=== PATIENT | female | born 1975 | race Caucasian/White ===

== ENCOUNTER 2019-06-13 10:08 | Outpatient (CLI) | payer OTHER, SELFPAY ==
[2019-06-13 10:47] LABS: Alanine Aminotransferase 14 U/L (4-35); Albumin Level 4.4 g/dL (3.5-5.1); Alkaline Phosphatase 115 U/L (38-126); Aspartate Amino Transferase 19 U/L (14-36); Bilirubin,Total 0.5 mg/dL (0.2-1.3); Blood Urea Nitrogen 13 mg/dL (7-17); Calcium 8.9 mg/dL (8.4-10.2); Carbon Dioxide 26 mmol/L (22-30); Chloride 101 mmol/L (98-107); Cholesterol 222 mg/dL (0-200); Estimated Glomerular Filt Rate > 60; Glucose 96 mg/dL (65-105); HDL Direct 43 mg/dL; Potassium 4.2 mmol/L (3.4-5.0); Sodium 139 mmol/L (137-145); Triglycerides 137 mg/dL (<150)
[2019-06-13 10:58] LABS: LDL Cholesterol Direct 132 mg/dL
== END 2019-06-13 10:09 | disposition home or self-care (01) ==
PROVIDERS: PCP Emergency Medicine; Visit Provider Emergency Medicine
DX: E78.5 Hyperlipidemia, unspecified (principal)
CPT/HCPCS: 36415; 80053; 80061

== ENCOUNTER 2019-12-30 07:29 | Outpatient (CLI) | payer OTHER, SELFPAY ==
[2019-12-30 08:41] LABS: Alanine Aminotransferase 12 U/L (4-35); Alkaline Phosphatase 82 U/L (38-126); Anion Gap 7 mmol/L (8-16); Aspartate Amino Transferase 19 U/L (14-36); Bilirubin,Total 0.3 mg/dL (0.2-1.3); Blood Urea Nitrogen 15 mg/dL (7-17); Carbon Dioxide 27 mmol/L (22-30); Chloride 104 mmol/L (98-107); Cholesterol 226 mg/dL (0-200); Estimated Glomerular Filt Rate > 60; Glucose 93 mg/dL (65-105); HDL Direct 38 mg/dL; Potassium 4.3 mmol/L (3.4-5.0); Sodium 138 mmol/L (137-145); Triglycerides 174 mg/dL (<150)
[2019-12-30 08:52] LABS: LDL Cholesterol Direct 131 mg/dL
== END 2019-12-30 07:30 | disposition home or self-care (01) ==
PROVIDERS: PCP Emergency Medicine; Visit Provider Emergency Medicine
DX: E78.5 Hyperlipidemia, unspecified (principal)
CPT/HCPCS: 36415; 80053; 80061

== ENCOUNTER 2020-03-16 13:49 | Outpatient (CLI) | payer OTHER, SELFPAY ==
--- NOTE | ~2020-03-16 | MM_ITS ---
EXAMINATION: MM screening lorena BI w deepti HISTORY: Screening TECHNIQUE: Craniocaudal and mediolateral oblique 3-D tomosynthesis images were obtained and synthetic 2-D images were generated. CAD analysis was submitted and interpreted. COMPARISON: Comparison to multiple prior studies sequentially, with oldest reviewed study dated 01/20. BREAST PARENCHYMAL COMPOSITION: There are scattered areas of fibroglandular density. FINDINGS: There is no evidence of suspicious mass, calcification, or architectural distortion to sugg est malignancy in either breast. There has been no suspicious interval change. IMPRESSION: 1. No mammographic evidence of malignancy. 2. Recommend routine screening mammography in one year. BI-RADS Category 1: Negative Reviewed, dictated and finalized at location A. S ARCHITECT
== END 2020-03-16 13:50 | disposition home or self-care (01) ==
LOC: ANHIMG 13:52
PROVIDERS: PCP Emergency Medicine; Visit Provider Obstetrics & Gynecology
DX: Z12.31 Encounter for screening mammogram for malignant neoplasm of breast (principal)
CPT/HCPCS: 77063; 77067

== ENCOUNTER 2020-04-02 10:44 | Outpatient (CLI) | payer OTHER, SELFPAY ==
[2020-04-02 11:36] LABS: LDL Cholesterol Direct 137 mg/dL
[2020-04-02 11:52] LABS: Alanine Aminotransferase 12 U/L (4-35); Albumin Level 4.2 g/dL (3.5-5.1); Alkaline Phosphatase 101 U/L (38-126); Anion Gap 10 mmol/L (8-16); Aspartate Amino Transferase 21 U/L (14-36); Bilirubin,Total 0.4 mg/dL (0.2-1.3); Blood Urea Nitrogen 14 mg/dL (7-17); Calcium 9.1 mg/dL (8.4-10.2); Carbon Dioxide 27 mmol/L (22-30); Chloride 104 mmol/L (98-107); Cholesterol 218 mg/dL (0-200); Estimated Glomerular Filt Rate 60; Glucose 106 mg/dL (65-105); HDL Direct 40 mg/dL; Potassium 4.4 mmol/L (3.4-5.0); Sodium 141 mmol/L (137-145); Triglycerides 115 mg/dL (<150)
== END 2020-04-02 10:45 | disposition home or self-care (01) ==
PROVIDERS: PCP Emergency Medicine; Visit Provider Emergency Medicine
DX: E78.5 Hyperlipidemia, unspecified (principal)
CPT/HCPCS: 36415; 80053; 80061

== ENCOUNTER 2020-07-23 09:27 | Outpatient (CLI) | payer OTHER, SELFPAY ==
[2020-07-23 09:51] LABS: Alanine Aminotransferase 12 U/L (4-35); Albumin Level 4.2 g/dL (3.5-5.1); Alkaline Phosphatase 96 U/L (38-126); Anion Gap 5 mmol/L (8-16); Aspartate Amino Transferase 19 U/L (14-36); Bilirubin,Total 0.2 mg/dL (0.2-1.3); Blood Urea Nitrogen 14 mg/dL (7-17); Calcium 8.7 mg/dL (8.4-10.2); Carbon Dioxide 27 mmol/L (22-30); Chloride 107 mmol/L (98-107); Cholesterol 209 mg/dL (0-200); Estimated Glomerular Filt Rate > 60; Glucose 100 mg/dL (65-105); HDL Direct 43 mg/dL; Potassium 4.3 mmol/L (3.4-5.0); Sodium 139 mmol/L (137-145); Triglycerides 104 mg/dL (<150)
[2020-07-23 10:01] LABS: LDL Cholesterol Direct 125 mg/dL
== END 2020-07-23 09:28 | disposition home or self-care (01) ==
LOC: ANHLAB 09:29
PROVIDERS: PCP Emergency Medicine; Visit Provider Emergency Medicine
DX: E78.5 Hyperlipidemia, unspecified (principal)
CPT/HCPCS: 36415; 80053; 80061

== ENCOUNTER 2021-04-18 06:57 | Outpatient (CLI) | payer OTHER, SELFPAY ==
[2021-04-18 07:30] LABS: Alanine Aminotransferase 14 U/L (4-35); Alkaline Phosphatase 86 U/L (38-126); Anion Gap 9 mmol/L (8-16); Aspartate Amino Transferase 18 U/L (14-36); Bilirubin,Total 0.3 mg/dL (0.2-1.3); Blood Urea Nitrogen 14 mg/dL (7-17); Calcium 8.7 mg/dL (8.4-10.2); Carbon Dioxide 24 mmol/L (22-30); Chloride 107 mmol/L (98-107); Cholesterol 238 mg/dL (0-200); Estimated Glomerular Filt Rate 60; Glucose 107 mg/dL (65-110); HDL Direct 43 mg/dL; Potassium 4.2 mmol/L (3.4-5.0); Sodium 140 mmol/L (137-145); Triglycerides 195 mg/dL (<150)
[2021-04-18 07:41] LABS: LDL Cholesterol Direct 131 mg/dL
[2021-04-22 00:03] LABS: Vitamin D 1,25 (OH)2 Total 41 pg/mL (18-72); Vitamin D2 1,25 (OH)2 <8 pg/mL; Vitamin D3 1,25 (OH)2 41 pg/mL
== END 2021-04-18 06:58 | disposition home or self-care (01) ==
PROVIDERS: PCP Emergency Medicine; Visit Provider Emergency Medicine
DX: R53.83 Other fatigue (principal); E78.5 Hyperlipidemia, unspecified
CPT/HCPCS: 36415; 80053; 80061; 82652

== ENCOUNTER 2021-07-22 07:13 | Outpatient (CLI) | payer OTHER, SELFPAY ==
[2021-07-22 08:09] LABS: Alanine Aminotransferase 12 U/L (4-35); Albumin Level 4.3 g/dL (3.5-5.1); Alkaline Phosphatase 97 U/L (38-126); Anion Gap 6 mmol/L (8-16); Aspartate Amino Transferase 23 U/L (14-36); Bilirubin,Total 0.3 mg/dL (0.2-1.3); Blood Urea Nitrogen 13 mg/dL (7-17); Calcium 8.6 mg/dL (8.4-10.2); Carbon Dioxide 28 mmol/L (22-30); Chloride 104 mmol/L (98-107); Cholesterol 227 mg/dL (0-200); Estimated Glomerular Filt Rate > 60; Glucose 109 mg/dL (65-110); HDL Direct 42 mg/dL; Potassium 4.3 mmol/L (3.4-5.0); Sodium 138 mmol/L (137-145); Triglycerides 118 mg/dL (<150)
[2021-07-22 08:20] LABS: LDL Cholesterol Direct 120 mg/dL
== END 2021-07-22 07:14 | disposition home or self-care (01) ==
LOC: ANHLAB 07:14
PROVIDERS: PCP Emergency Medicine; Visit Provider Emergency Medicine
DX: I10 Essential (primary) hypertension (principal); E78.5 Hyperlipidemia, unspecified
CPT/HCPCS: 36415; 80053; 80061

== ENCOUNTER → 2021-08-18 15:01 | Outpatient (CLI) | payer OTHER, SELFPAY ==
--- NOTE | ~2021-08-18 | MM_ITS ---
EXAMINATION: MM screening lorena BI w deepti HISTORY: Screening mammogram TECHNIQUE: Craniocaudal and mediolateral oblique 3-D tomosynthesis images were obtained and synthetic 2-D images were generated. CAD analysis was submitted and interpreted. COMPARISON: 02/20/2019, 03/16/2020 bilateral screening mammogram examinations BREAST PARENCHYMAL COMPOSITION: There are scattered areas of fibroglandular density. FINDINGS: There is no evidence of suspicious mass, calcification, or architectural distortion to sugg est malignancy in either breast. There has been no suspicious interval change. IMPRESSION: 1. No mammographic evidence of malignancy. 2. Recommend routine screening mammography in one year. BI-RADS Category 1: Negative Reviewed, dictated and finalized at location A.
== END ==
PROVIDERS: PCP Emergency Medicine; Visit Provider Obstetrics & Gynecology
DX: Z12.31 Encounter for screening mammogram for malignant neoplasm of breast (principal)
CPT/HCPCS: 77063; 77067

== ENCOUNTER 2021-12-23 10:39 | Outpatient (CLI) | payer OTHER, SELFPAY ==
[2021-12-23 11:06] LABS: Alanine Aminotransferase 12 U/L (6-35); Albumin Level 4.3 g/dL (3.5-5.1); Alkaline Phosphatase 96 U/L (38-126); Anion Gap 13 mmol/L (8-16); Aspartate Amino Transferase 23 U/L (14-36); Bilirubin,Total 0.3 mg/dL (0.2-1.3); Blood Urea Nitrogen 14 mg/dL (7-17); Calcium 8.7 mg/dL (8.4-10.2); Carbon Dioxide 28 mmol/L (22-30); Chloride 100 mmol/L (98-107); Cholesterol 230 mg/dL (0-200); Estimated Glomerular Filt Rate 59; Glucose 98 mg/dL (65-110); HDL Direct 39 mg/dL; Potassium 4.3 mmol/L (3.4-5.0); Sodium 141 mmol/L (137-145); Triglycerides 152 mg/dL (<150)
[2021-12-23 11:17] LABS: LDL Cholesterol Direct 122 mg/dL
== END 2021-12-23 10:40 | disposition home or self-care (01) ==
LOC: ANHLAB 10:41
PROVIDERS: PCP Emergency Medicine; Visit Provider Emergency Medicine
DX: E78.5 Hyperlipidemia, unspecified (principal); I10 Essential (primary) hypertension
CPT/HCPCS: 36415; 80053; 80061

== ENCOUNTER 2022-05-19 06:57 | Outpatient (CLI) | payer OTHER, SELFPAY ==
[2022-05-19 08:56] LABS: Alanine Aminotransferase 13 U/L (6-35); Albumin Level 4.3 g/dL (3.5-5.1); Alkaline Phosphatase 94 U/L (38-126); Anion Gap 4 mmol/L (8-16); Aspartate Amino Transferase 18 U/L (14-36); Bilirubin,Total 0.4 mg/dL (0.2-1.3); Blood Urea Nitrogen 12 mg/dL (7-17); Calcium 8.5 mg/dL (8.4-10.2); Carbon Dioxide 30 mmol/L (22-30); Chloride 104 mmol/L (98-107); Cholesterol 233 mg/dL (0-200); Estimated Glomerular Filt Rate > 60; Glucose 97 mg/dL (65-110); HDL Direct 43 mg/dL; Potassium 4.2 mmol/L (3.4-5.0); Sodium 138 mmol/L (137-145); Triglycerides 131 mg/dL (<150)
[2022-05-19 09:07] LABS: LDL Cholesterol Direct 120 mg/dL
[2022-05-23 11:34] LABS: Vitamin D 1,25 (OH)2 Total 44 pg/mL (18-72); Vitamin D2 1,25 (OH)2 <8 pg/mL; Vitamin D3 1,25 (OH)2 44 pg/mL
== END 2022-05-19 06:58 | disposition home or self-care (01) ==
LOC: ANHLAB 06:59
PROVIDERS: PCP Emergency Medicine; Visit Provider Emergency Medicine
DX: R53.83 Other fatigue (principal); I10 Essential (primary) hypertension
CPT/HCPCS: 36415; 80053; 80061; 82652

== ENCOUNTER 2022-06-21 12:37 | Outpatient (RCR) | payer OTHER, SELFPAY ==
[2022-06-21 14:27] VITALS: BMI 34.2
[2022-06-21 14:28] VITALS: BMI 34.2
== END 2022-09-11 10:23 | disposition home or self-care (01) ==
LOC: ANHDMC 12:37
PROVIDERS: PCP Emergency Medicine; Visit Provider Emergency Medicine
DX: E66.9 Obesity, unspecified (principal); Z71.3 Dietary counseling and surveillance
CPT/HCPCS: 97802

== ENCOUNTER 2023-01-05 07:13 | Outpatient (CLI) | payer OTHER, SELFPAY ==
[2023-01-05 07:59] LABS: Alanine Aminotransferase 13 U/L (6-35); Albumin Level 4.3 g/dL (3.5-5.1); Alkaline Phosphatase 80 U/L (38-126); Anion Gap 9 mmol/L (8-16); Aspartate Amino Transferase 20 U/L (14-36); Bilirubin,Total 0.4 mg/dL (0.2-1.3); Blood Urea Nitrogen 16 mg/dL (7-17); Calcium 9.1 mg/dL (8.4-10.2); Carbon Dioxide 25 mmol/L (22-30); Chloride 105 mmol/L (98-107); Cholesterol 231 mg/dL (0-200); Estimated Glomerular Filt Rate > 60; Glucose 102 mg/dL (65-110); HDL Direct 42 mg/dL; Potassium 4.1 mmol/L (3.4-5.0); Sodium 139 mmol/L (137-145); Triglycerides 128 mg/dL (<150)
[2023-01-05 08:10] LABS: LDL Cholesterol Direct 131 mg/dL
[2023-01-10 11:03] LABS: Vitamin D 1,25 (OH)2 Total 54 pg/mL (18-72); Vitamin D2 1,25 (OH)2 <8 pg/mL; Vitamin D3 1,25 (OH)2 54 pg/mL
== END 2023-01-05 07:14 | disposition home or self-care (01) ==
PROVIDERS: PCP Emergency Medicine; Visit Provider Emergency Medicine
DX: E78.5 Hyperlipidemia, unspecified (principal); E55.9 Vitamin D deficiency, unspecified
CPT/HCPCS: 36415; 80053; 80061; 82652

== ENCOUNTER 2023-01-08 15:55 | Outpatient (CLI) | payer OTHER, SELFPAY ==
--- NOTE | ~2023-01-08 | MM_ITS ---
EXAMINATION: MM screening lorena BI w deepti HISTORY: Screening TECHNIQUE: Craniocaudal and mediolateral oblique 3-D tomosynthesis images were obtained and synthetic 2-D images were generated. CAD analysis was submitted and interpreted. COMPARISON: Comparison to multiple prior studies sequentially, with oldest reviewed study dated 01/21. BREAST PARENCHYMAL COMPOSITION: Breast composed of scattered areas of fibroglandular density FINDINGS: There is no evidence of suspicious mass, calcification, or architectural distortion to sugg est malignancy in either breast. There has been no suspicious interval change. IMPRESSION: 1. No mammographic evidence of malignancy. 2. Recommend routine screening mammography in one year. BI-RADS Category 1: Negative Reviewed, dictated and finalized at location A.
== END 2023-01-08 15:56 ==
PROVIDERS: PCP Emergency Medicine; Visit Provider Obstetrics & Gynecology
DX: Z12.31 Encounter for screening mammogram for malignant neoplasm of breast (principal)
CPT/HCPCS: 77063; 77067

== ENCOUNTER 2023-05-18 07:09 | Outpatient (CLI) | payer OTHER, SELFPAY ==
[2023-05-18 07:58] LABS: Alanine Aminotransferase 15 U/L (6-35); Albumin Level 4.3 g/dL (3.5-5.1); Alkaline Phosphatase 80 U/L (38-126); Anion Gap 7 mmol/L (8-16); Aspartate Amino Transferase 16 U/L (14-36); Bilirubin,Total 0.3 mg/dL (0.2-1.3); Blood Urea Nitrogen 17 mg/dL (7-17); Carbon Dioxide 25 mmol/L (22-30); Chloride 108 mmol/L (98-107); Cholesterol 218 mg/dL (0-200); Estimated Glomerular Filt Rate > 60; Glucose 102 mg/dL (65-110); HDL Direct 43 mg/dL; Potassium 4.1 mmol/L (3.4-5.0); Sodium 140 mmol/L (137-145); Triglycerides 139 mg/dL (<150)
[2023-05-18 08:10] LABS: LDL Cholesterol Direct 127 mg/dL
== END 2023-05-18 07:10 | disposition home or self-care (01) ==
LOC: ANHLAB 07:12
PROVIDERS: PCP Emergency Medicine; Visit Provider Emergency Medicine
DX: E78.5 Hyperlipidemia, unspecified (principal); E55.9 Vitamin D deficiency, unspecified
CPT/HCPCS: 36415; 80053; 80061; 82306

== ENCOUNTER 2023-06-10 14:16 | Outpatient (CLI) | payer OTHER, SELFPAY ==
--- NOTE | 2023-06-10 14:50 | ECHO_ITS ---
Patient Info Name: Tere Tracy Age: 48 years : 1975 Gender: Female Ht: 64 in Wt: 190 lbs BSA: 2.01 m2 HR: 69 bpm BP: 132 / 70 mmHg Technical Quality: Good Exam Date: 06/10/2023 2:55 PM Exam Location: [facility] Lab Patient Status: Outpatient Admit Date: 06/10/2023 Staff Ordering Physician: Del Beaulieu MD Portable Grinding Machine Operator: Neyda Soto RDCS Attending Provider: Del Beaulieu MD Referring Physician: Christofer PERALES; Exam Type: CA echo doppler color flow Study Info Indications I34.1 - Nonrheumatic mitral (valve) prolapse Complete two-dimensional, color flow and Doppler transthoracic echocardiogram is performed. Summary 1. Complete two-dimensional, color flow and Doppler transthoracic echocardiogram is performed. 2. Left ventricular chamber dimension is normal. 3. Left ventricular systolic function is normal, estimated at 60-65%. 4. The left ventricular diastolic function is normal. 5. E/e' 8 is minimally elevated. 6. Left atrial chamber dimension is mildly enlarged. 7. There is trace mitral valve regurgitation. 8. There is trace tricuspid valve regurgitation. 9. No pulmonary hypertension, estimated pulmonary arterial systolic pressure is 30 mmHg. Left Ventricle E/e' 8 is minimally elevated. Left ventricular chamber dimension is normal. Left ventricular systolic function is normal, estimated at 60-65%. The left ventricular diastolic function is normal. Right Ventricle Right ventricular chamber dimension is normal. Right ventricular systolic function is normal. Left Atria Left atrial chamber dimension is mildly enlarged. Right Atria Right atrial chamber dimension is normal. Aortic Valve The aortic valve is trileaflet. There is no aortic valve stenosis. There is no aortic valve regurgitation. Pulmonic Valve There is no pulmonic regurgitation. Mitral Valve No mitral valve prolapse. There is no mitral valve stenosis. There is trace mitral valve regurgitation. Tricuspid Valve There is trace tricuspid valve regurgitation. No pulmonary hypertension, estimated pulmonary arterial systolic pressure is 30 mmHg. Pericardium/Pleural There is no pericardial effusion. Inferior Vena Cava Normal inferior vena cava with >50% collapse upon inspiration consistent with normal right atrial pressure, 5 mmHg. Aorta The aortic root size at the sinus of Valsalva is normal. Left Ventricular Outflow Tract Name Value Normal LVOT 2D LVOT Diameter 1.9 cm LVOT Doppler LVOT Peak Gradient 6 mmHg LVOT Mean Gradient 3 mmHg LVOT VTI 26 cm LVOT VTI/AV VTI Ratio 0.7 LVOT Stroke Volume 74 ml LVOT CO 5.0 l/min LVOT CI 2.5 l/min/m2 Pulmonic Valve Name Value Normal RVOT Doppler RVOT Peak Gradient 3 mmHg PV
== END 2023-06-10 14:17 | disposition home or self-care (01) ==
LOC: ANHCARD 14:17
PROVIDERS: PCP Emergency Medicine; Visit Provider Emergency Medicine
DX: I34.1 Nonrheumatic mitral (valve) prolapse (principal)
CPT/HCPCS: 93306

== ENCOUNTER 2023-09-14 08:23 | Outpatient (CLI) | payer OTHER, SELFPAY ==
[2023-09-14 09:44] LABS: Alanine Aminotransferase 11 U/L (6-35); Albumin Level 4.6 g/dL (3.5-5.1); Alkaline Phosphatase 82 U/L (38-126); Anion Gap 10 mmol/L (4-12); Aspartate Amino Transferase 16 U/L (14-36); Bilirubin,Total 0.4 mg/dL (0.2-1.3); Blood Urea Nitrogen 15 mg/dL (7-17); Carbon Dioxide 25 mmol/L (22-30); Chloride 105 mmol/L (98-107); Estimated Glomerular Filt Rate > 60; Glucose 96 mg/dL (65-110); Potassium 4.4 mmol/L (3.4-5.0); Sodium 140 mmol/L (137-145)
[2023-09-14 10:02] LABS: Vitamin D 25 Hydroxy 27.1 ng/mL
== END 2023-09-14 08:24 | disposition home or self-care (01) ==
LOC: ANHLAB 08:29
PROVIDERS: PCP Emergency Medicine; Visit Provider Emergency Medicine
DX: E55.9 Vitamin D deficiency, unspecified (principal); E78.5 Hyperlipidemia, unspecified
CPT/HCPCS: 36415; 80053; 82306

== ENCOUNTER 2024-01-11 08:45 | Outpatient (CLI) | payer OTHER, SELFPAY ==
[2024-01-11 10:35] LABS: Vitamin D 25 Hydroxy 32.5 ng/mL
== END 2024-01-11 08:46 | disposition home or self-care (01) ==
LOC: ANHLAB 08:48
PROVIDERS: PCP Emergency Medicine; Visit Provider Emergency Medicine
DX: E55.9 Vitamin D deficiency, unspecified (principal)
CPT/HCPCS: 36415; 82306

== ENCOUNTER 2024-01-11 11:06 | Outpatient (CLI) | payer OTHER, SELFPAY ==
--- NOTE | ~2024-01-11 | MM_ITS ---
EXAMINATION: MM screening lorena BI w deepti HISTORY: Screening TECHNIQUE: Craniocaudal and mediolateral oblique 3-D tomosynthesis images were obtained and synthetic 2-D images were generated. CAD analysis was submitted and interpreted. COMPARISON: Comparison to multiple prior studies sequentially, with oldest reviewed study dated 01/21. BREAST PARENCHYMAL COMPOSITION: Not dense: There are scattered areas of fibroglandular density. FINDINGS: There are asymmetries in the upper aspect of the left breast which are slightly more promin ent than on prior examinations. The right breast is stable without evidence for malignancy. IMPRESSION: 1. Developing left breast asymmetries in the outer aspect of the left breast. 2. Additional mammographic views and possible breast ultrasound are recommended. BI-RADS Category 0: Incomplete: Needs additional imaging evaluation. Reviewed, dictated and finalized at location B. IMPRESSION: 1. Developing left breast asymmetries in the outer aspect of the left breast. 2. Additional mammographic views and possible breast ultrasound are recommended . BI-RADS Category 0: Incomplete: Needs additional imaging evaluation.
== END 2024-01-11 11:07 | disposition home or self-care (01) ==
PROVIDERS: PCP Emergency Medicine; Visit Provider Obstetrics & Gynecology
DX: N64.89 Other specified disorders of breast (principal); Z12.31 Encounter for screening mammogram for malignant neoplasm of breast
CPT/HCPCS: 77063; 77067

== ENCOUNTER 2024-01-28 07:36 | Outpatient (CLI) | payer OTHER, SELFPAY ==
--- NOTE | ~2024-01-28 | MMUS_ITS ---
EXAMINATION: MM diagnostic lorena LT w deepti, US breast LT limited HISTORY: Follow-up left breast asymmetries TECHNIQUE: Additional 3-D tomosynthesis images of the left breast were performed and synthetic 2-D im ages were generated. CAD analysis was submitted and interpreted. High resolution Limited left breast ultrasound was performed. COMPARISON: Comparison to multiple prior studies sequentially, with oldest reviewed study dated 01/20. BREAST PARENCHYMAL COMPOSITION: Not dense: There are scattered areas of fibroglandular density. FINDINGS: MAMMOGRAPHIC FINDINGS: There are no suspicious masses, calcifications or architectural distortion in the left breast to sugg est malignancy. Left breast asymmetries compress with spot views, compatible with superimposed fibrog landular content. ULTRASOUND: Limited left breast ultrasound: Normal heterogeneous echotexture without focal solid or cystic mass. IMPRESSION: 1. No evidence for malignancy in the left breast. 2. Routine yearly screening mammogram and regular clinical breast examination are recommended. BI-RADS Category 1: Negative Reviewed, dictated and finalized at location B. IMPRESSION: 1. No evidence for malignancy in the left breast. 2. Routine yearly screening mammogram and regular clinical breast examination a re recommended. BI-RADS Category 1: Negative
== END 2024-01-28 07:37 | disposition home or self-care (01) ==
LOC: MICIMG 07:37
PROVIDERS: PCP Emergency Medicine; Visit Provider Obstetrics & Gynecology
DX: R92.8 Other abnormal and inconclusive findings on diagnostic imaging of breast (principal)
CPT/HCPCS: 76642; 77061; 77065; G0279

== ENCOUNTER 2024-05-23 10:56 | Outpatient (CLI) | payer OTHER, SELFPAY ==
[2024-05-23 11:51] LABS: Alanine Aminotransferase 11 U/L (6-35); Alkaline Phosphatase 90 U/L (38-126); Anion Gap 11 mmol/L (4-12); Aspartate Amino Transferase 16 U/L (14-36); Bilirubin,Total 0.6 mg/dL (0.2-1.3); Blood Urea Nitrogen 12 mg/dL (7-17); Calcium 9.1 mg/dL (8.4-10.2); Carbon Dioxide 25 mmol/L (22-30); Chloride 105 mmol/L (98-107); Cholesterol 233 mg/dL (0-200); Estimated Glomerular Filt Rate > 60; Glucose 91 mg/dL (65-110); HDL Direct 48 mg/dL; Potassium 4.3 mmol/L (3.4-5.0); Sodium 141 mmol/L (137-145); Triglycerides 103 mg/dL (<150)
[2024-05-23 12:02] LABS: LDL Cholesterol Direct 143 mg/dL
[2024-05-23 12:06] LABS: Vitamin D 25 Hydroxy 35.2 ng/mL
== END 2024-05-23 10:57 | disposition home or self-care (01) ==
LOC: ANHLAB 10:57
PROVIDERS: PCP Emergency Medicine; Visit Provider Emergency Medicine
DX: E78.5 Hyperlipidemia, unspecified (principal); E55.9 Vitamin D deficiency, unspecified
CPT/HCPCS: 36415; 80053; 80061; 82306

== ENCOUNTER 2024-09-17 17:05 | Outpatient (CLI) | payer OTHER, SELFPAY ==
[2024-09-17 18:22] LABS: Alanine Aminotransferase 12 U/L (6-35); Albumin Level 4.6 g/dL (3.5-5.1); Alkaline Phosphatase 83 U/L (38-126); Anion Gap 10 mmol/L (4-12); Aspartate Amino Transferase 22 U/L (14-36); Bilirubin,Total 0.3 mg/dL (0.2-1.3); Blood Urea Nitrogen 15 mg/dL (7-17); Calcium 8.9 mg/dL (8.4-10.2); Carbon Dioxide 25 mmol/L (22-30); Chloride 103 mmol/L (98-107); Estimated Glomerular Filt Rate > 60; Glucose 93 mg/dL (65-110); Potassium 3.8 mmol/L (3.4-5.0); Sodium 138 mmol/L (137-145)
[2024-09-17 19:05] LABS: Vitamin D 25 Hydroxy 30.3 ng/mL
== END 2024-09-17 17:06 | disposition home or self-care (01) ==
PROVIDERS: PCP Emergency Medicine; Visit Provider Emergency Medicine
DX: E78.5 Hyperlipidemia, unspecified (principal); E55.9 Vitamin D deficiency, unspecified
CPT/HCPCS: 36415; 80053; 82306

== ENCOUNTER 2025-01-12 08:46 | Outpatient (CLI) | payer OTHER, SELFPAY ==
--- NOTE | ~2025-01-12 | MM_ITS ---
EXAMINATION: MM screening lorena BI w deepti HISTORY: Screening TECHNIQUE: Craniocaudal and mediolateral oblique 3-D tomosynthesis images were obtained and synthetic 2-D images were generated. CAD analysis was submitted and interpreted. COMPARISON: 01/08/2023 BREAST PARENCHYMAL COMPOSITION: There are scattered areas of fibroglandular density. FINDINGS: There is no evidence of suspicious mass, calcification, or architectural distortion to suggest malignancy. There has been no suspicious interval change. IMPRESSION: 1. No mammographic evidence of malignancy. Recommend routine screening mammography in one year. BI-RADS Category 2: Benign finding(s) Reviewed, dictated and finalized at location Q. IMPRESSION: 1. No mammographic evidence of malignancy. Recommend routine screening mammogra phy in one year. BI-RADS Category 2: Benign finding(s)
== END 2025-01-12 08:47 | disposition home or self-care (01) ==
LOC: MICIMG 08:47
PROVIDERS: PCP Emergency Medicine; Visit Provider Obstetrics & Gynecology
DX: Z12.31 Encounter for screening mammogram for malignant neoplasm of breast (principal)
CPT/HCPCS: 77063; 77067

== ENCOUNTER 2025-01-23 09:57 | Outpatient (CLI) | payer OTHER, SELFPAY ==
[2025-01-23 11:40] LABS: Alanine Aminotransferase 12 U/L (6-35); Albumin Level 4.1 g/dL (3.5-5.1); Alkaline Phosphatase 91 U/L (38-126); Anion Gap 7 mmol/L (4-12); Aspartate Amino Transferase 18 U/L (14-36); Bilirubin,Total 0.4 mg/dL (0.2-1.3); Blood Urea Nitrogen 10 mg/dL (7-17); Calcium 8.7 mg/dL (8.4-10.2); Carbon Dioxide 25 mmol/L (22-30); Chloride 106 mmol/L (98-107); Cholesterol 222 mg/dL (0-200); Estimated Glomerular Filt Rate > 60; Glucose 91 mg/dL (65-110); HDL Direct 44 mg/dL; Potassium 4.0 mmol/L (3.4-5.0); Sodium 138 mmol/L (137-145); Total Protein 7.5 g/dL (6.3-8.2); Triglycerides 104 mg/dL (<150)
== END 2025-01-23 09:58 | disposition home or self-care (01) ==
LOC: ANHLAB 09:59
PROVIDERS: PCP Emergency Medicine; Visit Provider Emergency Medicine
DX: E78.5 Hyperlipidemia, unspecified (principal); E55.9 Vitamin D deficiency, unspecified
CPT/HCPCS: 36415; 80053; 80061; 82306

== ENCOUNTER 2025-02-12 11:11 | Outpatient (CLI) | payer OTHER, SELFPAY ==
[2025-02-12 08:11] LABS: Hematocrit 34.4 % (37.0-47.0); Hemoglobin 9.9 g/dL (12.0-15.0); Immature Granulocyte Percent A 0.2 % (0-0.5); Lymphocytes Absolute Auto 1.64 K/mm3 (0.9-3.2); Mean Corpuscular HGB Conc 28.8 g/dl (32-36); Mean Corpuscular Hemoglobin 22.3 pg (26-34); Mean Corpuscular Volume 77.5 fl (80-100); Nucleated Red Blood Cells Absolute Auto 0.000 K/mm3 (0.0-0.012); Nucleated Red Blood Cells Perc 0.0 % (0.0-0.2); Platelet Count Result 425 k/mm3 (150-375); Red Blood Count 4.44 M/mm3 (4.2-5.4); White Blood Count 5.2 K/mm3 (4.5-10.0)
[2025-02-12 08:36] LABS: Alanine Aminotransferase 14 U/L (6-35); Albumin Level 4.5 g/dL (3.5-5.1); Alkaline Phosphatase 94 U/L (38-126); Anion Gap 10 mmol/L (4-12); Aspartate Amino Transferase 23 U/L (14-36); Bilirubin,Total 0.5 mg/dL (0.2-1.3); Blood Urea Nitrogen 14 mg/dL (7-17); Calcium 9.3 mg/dL (8.4-10.2); Carbon Dioxide 28 mmol/L (22-30); Chloride 102 mmol/L (98-107); Cholesterol 249 mg/dL (0-200); Estimated Glomerular Filt Rate > 60; Glucose 105 mg/dL (65-110); HDL Direct 53 mg/dL; Potassium 4.7 mmol/L (3.4-5.0); Sodium 140 mmol/L (137-145); Total Protein 8.2 g/dL (6.3-8.2); Triglycerides 138 mg/dL (<150)
--- NOTE | 2025-02-12 08:45 | ECG_ITS ---
Test Date: 2025-02-12 08:51:43 Measurements Intervals [place] Rate: 84 P: 58 VT: 152 QRS: 14 QRSD: 108 T: 17 QT: 368 QTc: 436 Interpretive Statements SINUS RHYTHM INCOMPLETE RIGHT BUNDLE BRANCH BLOCK BORDERLINE ST-T WAVE ABNORMALITY- INFERIOR LEADS BORDERLINE ECG No previous ECG available for comparison Electronically Signed On 02-12-2025 10:35:23 CDT by Mil Phipps D.O.
[2025-02-12 08:52] LABS: Anisocytosis 1+; Hypochromasia 1+; Microcytosis 1+ (NORMAL); Ovalocytes 1+; Schistocytes None Seen
[2025-02-12 09:27] LABS: Thyroid Stimulating Hormone 0.850 uIU/mL (0.465-4.680)
[2025-02-12 12:37] LABS: Vitamin B12 414.0 pg/mL (239-931)
[2025-02-12 15:16] LABS: Iron 31 ug/dL (37-170)
== END 2025-02-12 11:12 | disposition home or self-care (01) ==
PROVIDERS: PCP Emergency Medicine; Visit Provider Emergency Medicine
DX: R53.83 Other fatigue (principal); I10 Essential (primary) hypertension; E55.9 Vitamin D deficiency, unspecified; D64.9 Anemia, unspecified; E53.8 Deficiency of other specified B group vitamins; E78.5 Hyperlipidemia, unspecified; R00.2 Palpitations
CPT/HCPCS: 36415; 80053; 80061; 82306; 82607; 82746; 83540; 84443; 85025; 93005

== ENCOUNTER 2025-02-15 17:02 | Outpatient (CLI) | payer OTHER, SELFPAY ==
[2025-02-15 18:00] LABS: Iron 30 ug/dL (37-170)
[2025-02-15 18:10] LABS: Percent Iron Saturation 7 % (20-50)
[2025-02-15 18:37] LABS: Ferritin 4.46 ng/mL (11.1-264)
== END 2025-02-15 17:03 | disposition home or self-care (01) ==
LOC: ANHLAB 17:03
PROVIDERS: PCP Emergency Medicine; Visit Provider Emergency Medicine
DX: D64.9 Anemia, unspecified (principal); R79.89 Other specified abnormal findings of blood chemistry
CPT/HCPCS: 36415; 82728; 83540; 83550

== ENCOUNTER 2025-02-22 09:31 | Day surgery (SDC) | payer OTHER, SELFPAY ==
[2025-02-16 08:34] VITALS: BMI 34.2
[2025-02-22 10:00] VITALS: BMI 33.7
[2025-02-22 10:04] VITALS: BP 130/82; PULSE 104; RESP 18; TEMP 37.2; O2SAT 100
--- NOTE | 2025-02-22 10:20 | WPDANESEPPF ---
Anes - Initial Pre Proc Eval Procedure: Operation Date: 02/22/25 13:30 Proposed Procedures p Diagnostic Colonoscopy - Willi Roberts MD Date/Time: 02/22/25 10:20 Surgeon: Willi Roberts MD Pre Op Diagnosis: Anemia, unspecified Patient Data Age: 49 Gender: F Height: 1.6 m Weight: 86.3 kg Last Vital Signs Temp 98.9 F 02/22/25 10:04 Pulse 104 H 02/22/25 10:04 Resp 18 02/22/25 10:04 BP 130/82 02/22/25 10:04 Pulse Ox 100 02/22/25 10:04 O2 Del Method Room Air 02/22/25 10:04 Allergies Allergy/AdvReac Type Severity Reaction Status Date / Time Penicillins Allergy Unknown Rash Verified 02/22/25 09:52 Home Medications ?Medication ?Instructions ?Recorded ?Confirmed ?Type omeprazole 20 mg capsule,delayed 20 mg PO DAILY 05/31/19 02/22/25 History release omega-3 fatty acids-fish oil 360 1 cap PO DAILY 08/29/22 02/22/25 History mg-1,200 mg capsule (Fish Oil) cholecalciferol (vitamin D3) 50 100 mcg (2 x 50 mcg (2,000 unit)) 09/23/24 02/22/25 Rx mcg (2,000 unit) capsule PO DAILY #180 caps sertraline 25 mg tablet See Rx Instructions .Route 12/07/24 02/22/25 Rx .COMPLEX #90 tabs metoprolol succinate 100 mg 100 mg PO DAILY #90 tabs 02/12/25 02/22/25 Rx tablet,extended release 24 hr magnesium 200 mg tablet 400 mg PO HS 02/17/25 02/22/25 History Patient hx anesthesia problems: none Family hx anesthesia problems: none Results Review: All pre-operative results and documents have been reviewed as part of the pre-operative evaluation. [facility] Past Medical History Medical History Tinea Atypical mole Migraine Insomnia Fatigue Diarrhea Other nonrheumatic mitral valve disorders Hypothyroidism, unspecified Herpes simplex Heartburn Heart palpitations Gastro-esophageal reflux disease without esophagitis Essential (primary) hypertension Anxiety Abnormal mammogram Skin lesion of hand Rash and nonspecific skin eruption Hypertension Vaginal delivery x2 Surgical History Surgical History History of tubal ligation Family History Family History (Updated 02/12/25 @ 10:55 by Romelia Houser MA) Father Patient's father is in good health, Onset Age: 65 Grandparent Family history of malignant neoplasm of male breast Mother Family history of malignant neoplasm of brain, Onset Age: 76 History of GI bleed Social History Social History Smoking status: Never smoker Second hand tobacco smoke exposure: No Alcohol intake: former Substance use: never Substance use type: does not use Do You Feel Safe in your Home?: Yes Lack of Transportation: No Lack of Food: Never True Current Housing: I Have Housing Concerned About Future Housing: No Difficulty Paying Gas/Electric Bills: No Difficulty Paying for Meds: No Currently Unemployed: No Education: High School Diploma/GED Difficulty w/ Childcare or Family Care: No Living arrangements: with family Additional living arrangements comments: Gender identity (if verbalized by the patient): Female Spiritual care concerns: No Agree to blood products: Yes Anes - Eval Final PreProcedure Day of Procedure 02/22/25 10:20 Heart: other Lungs: clear to auscultation Airway: Mallampati scale class II Neurological: alert and oriented Last oral intake: >/= 8 hours ASA classification: III Anesthetic plan: proceed Anesthesia type and monitoring: monitored anesthesia care Results Review: All pre-operative results and documents have been reviewed as part of the pre-operative evaluation. Informed Consent: The patient's anesthetic plan and its attendant risks and benefits were discussed with the patient/family/POA. Questions were solicited and answers provided to the satisfaction of the patient/family/POA.
--- NOTE | 2025-02-22 10:32 | WPDANESPN ---
Anes - Prog Note Post-Op Date/Time: 02/22/25 10:32 Vital Signs: Last Vital Signs Temp 98.9 F 02/22/25 10:04 Pulse 104 H 02/22/25 10:04 Resp 18 02/22/25 10:04 BP 130/82 02/22/25 10:04 Pulse Ox 100 02/22/25 10:04 O2 Del Method Room Air 02/22/25 10:04 Pain Score (VAS): no Patient Feedback: Patient satisfied with anesthetic care.
--- NOTE | 2025-02-22 10:55 | PM.IMHP ---
H&P: HPI History of Present Illness Date/Time: 02/22/25 10:55 Chief Complaint: Iron deficiency anemia Narrative: patient referred for colonoscopy for the recent finding of iron deficiency anemia: iron saturation 7%, ferritin 4.4. Review of Systems Review of Systems: All systems reviewed & are unremarkable except as noted in HPI and below PMFSH Past Medical History Medical History Tinea Atypical mole Migraine Insomnia Fatigue Diarrhea Other nonrheumatic mitral valve disorders Hypothyroidism, unspecified Herpes simplex Heartburn Heart palpitations Gastro-esophageal reflux disease without esophagitis Essential (primary) hypertension Anxiety Abnormal mammogram Skin lesion of hand Rash and nonspecific skin eruption Hypertension Vaginal delivery x2 Surgical History Surgical History History of tubal ligation Family History Family History (Updated 02/12/25 @ 10:55 by Romelia Houser MA) Father Patient's father is in good health, Onset Age: 65 Grandparent Family history of malignant neoplasm of male breast Mother Family history of malignant neoplasm of brain, Onset Age: 76 History of GI bleed Social History Social History Smoking status: Never smoker Second hand tobacco smoke exposure: No Alcohol intake: former Substance use: never Substance use type: does not use Do You Feel Safe in your Home?: Yes Lack of Transportation: No Lack of Food: Never True Current Housing: I Have Housing Concerned About Future Housing: No Difficulty Paying Gas/Electric Bills: No Difficulty Paying for Meds: No Currently Unemployed: No Education: High School Diploma/GED Difficulty w/ Childcare or Family Care: No Living arrangements: with family Additional living arrangements comments: Gender identity (if verbalized by the patient): Female Spiritual care concerns: No Agree to blood products: Yes Meds Home Medications and Allergies Home Medications ?Medication ?Instructions ?Recorded ?Confirmed ?Type omeprazole 20 mg capsule,delayed 20 mg PO DAILY 05/31/19 02/22/25 History release omega-3 fatty acids-fish oil 360 1 cap PO DAILY 08/29/22 02/22/25 History mg-1,200 mg capsule (Fish Oil) cholecalciferol (vitamin D3) 50 100 mcg (2 x 50 mcg (2,000 unit)) 09/23/24 02/22/25 Rx mcg (2,000 unit) capsule PO DAILY #180 caps sertraline 25 mg tablet See Rx Instructions .Route 12/07/24 02/22/25 Rx .COMPLEX #90 tabs metoprolol succinate 100 mg 100 mg PO DAILY #90 tabs 02/12/25 02/22/25 Rx tablet,extended release 24 hr magnesium 200 mg tablet 400 mg PO HS 02/17/25 02/22/25 History Allergies Allergy/AdvReac Type Severity Reaction Status Date / Time Penicillins Allergy Unknown Rash Verified 02/22/25 09:52 Vital Signs Vital Signs - 24 hr 02/22/25 10:04 Temperature 98.9 F Pulse Rate 104 H Respiratory Rate 18 Blood Pressure 130/82 Pulse Oximetry 100 Oxygen Delivery Room Air Exam Const: General: cooperative and healthy appearing Resp: Effort & Inspection: normal respiratory effort and able to speak in complete sentences Auscultation: clear to auscultation bilaterally Cardio: Rate: regular rate Rhythm: regular rhythm GI: Inspection: normal to inspection GI Palp: No No hepatosplenomegaly present Auscultation: normal bowel sounds Rectal Exam: deferred Skin: General skin exam: normal color Psych: Appearance: grossly normal Mental Status: mental status grossly normal Assessment and Plan Assessment and plan (1) Iron deficiency anemia: Code(s): D50.9 - Iron deficiency anemia, unspecified Status: Acute Assessment and Plan: The patient is deemed a good candidate for the procedure. Consent signed. Will proceed.
[2025-02-22] MEDS: LACTATED RINGERS 1,000 ML 150 ML IV CONT (11:00)
[2025-02-22 11:26] VITALS: BP 100/54; PULSE 77; RESP 14; O2SAT 99
[2025-02-22 11:36] VITALS: BP 112/63; PULSE 73; RESP 16; O2SAT 98
[2025-02-22 11:46] VITALS: BP 112/70; PULSE 66; RESP 16; O2SAT 100
== END 2025-02-22 11:52 | disposition home or self-care (01) ==
PROVIDERS: PCP Emergency Medicine; Referring Provider Emergency Medicine; Visit Provider Internal Medicine Gastroenterology
PROC: 0DJD8ZZ Inspection of Lower Intestinal Tract, Via Natural or Artificial Opening Endoscopic (ICD-10-PCS; CPT 45378; principal; 2025-02-22 13:30)
DX: D50.9 Iron deficiency anemia, unspecified (principal)
CPT/HCPCS: 45378

== ENCOUNTER 2025-04-03 07:33 | Day surgery (SDC) | payer OTHER, SELFPAY ==
[2025-02-26 09:34] VITALS: BMI 33.7
[2025-04-03 07:50] VITALS: BP 135/79; PULSE 66; RESP 16; TEMP 36.8; O2SAT 100; BMI 34.0
[2025-04-03] MEDS: SIMETHICONE ORAL SUSPENSION 20 MG/0.3 ML 30 ML BOTTLE 1.8 ML PO (08:03)
[2025-04-03] MEDS: LACTATED RINGERS 1,000 ML 150 ML IV CONT (08:10)
--- NOTE | 2025-04-03 09:51 | WPDANESEPPF ---
Anes - Initial Pre Proc Eval Procedure: Operation Date: 04/03/25 09:30 Proposed Procedures p Esophagogastroduodenoscopy - Willi Roberts MD Date/Time: 04/03/25 09:51 Surgeon: Willi Roberts MD Pre Op Diagnosis: Iron deficiency anemia, unspecified Patient Data Age: 49 Gender: F Height: 1.6 m Weight: 87.1 kg Last Vital Signs Temp 36.8 C 04/03/25 07:50 Pulse 66 04/03/25 07:50 Resp 16 04/03/25 07:50 BP 135/79 04/03/25 07:50 Pulse Ox 100 04/03/25 07:50 O2 Del Method Room Air 04/03/25 07:50 Allergies Allergy/AdvReac Type Severity Reaction Status Date / Time Penicillins Allergy Unknown Rash Verified 04/03/25 07:41 Home Medications ?Medication ?Instructions ?Recorded ?Confirmed ?Type omeprazole 20 mg capsule,delayed 20 mg PO DAILY 05/31/19 04/03/25 History release omega-3 fatty acids-fish oil 360 1 cap PO DAILY 08/29/22 04/03/25 History mg-1,200 mg capsule (Fish Oil) cholecalciferol (vitamin D3) 50 100 mcg (2 x 50 mcg (2,000 unit)) 09/23/24 04/03/25 Rx mcg (2,000 unit) capsule PO DAILY #180 caps metoprolol succinate 100 mg 100 mg PO DAILY #90 tabs 02/12/25 04/03/25 Rx tablet,extended release 24 hr magnesium 200 mg tablet 400 mg PO HS 02/17/25 04/03/25 History sertraline 25 mg tablet 25 mg PO DAILY 03/10/25 03/10/25 History Patient hx anesthesia problems: none Family hx anesthesia problems: none Results Review: All pre-operative results and documents have been reviewed as part of the pre-operative evaluation. [facility] Past Medical History Medical History Tinea Atypical mole Migraine Insomnia Fatigue Diarrhea Other nonrheumatic mitral valve disorders Hypothyroidism, unspecified Herpes simplex Heartburn Heart palpitations Gastro-esophageal reflux disease without esophagitis Essential (primary) hypertension Anxiety Abnormal mammogram Skin lesion of hand Rash and nonspecific skin eruption Hypertension Vaginal delivery x2 Surgical History Surgical History History of tubal ligation Family History Family History (Updated 02/12/25 @ 10:55 by Romelia Houser MA) Father Patient's father is in good health, Onset Age: 65 Grandparent Family history of malignant neoplasm of male breast Mother Family history of malignant neoplasm of brain, Onset Age: 76 History of GI bleed Social History Social History Smoking status: Never smoker Second hand tobacco smoke exposure: No Alcohol intake: former Substance use: never Substance use type: does not use Lack of Transportation: No Lack of Food: Never True Current Housing: I Have Housing Concerned About Future Housing: No Difficulty Paying Gas/Electric Bills: No Difficulty Paying for Meds: No Currently Unemployed: No Education: High School Diploma/GED Difficulty w/ Childcare or Family Care: No Living arrangements: with family Additional living arrangements comments: Gender identity (if verbalized by the patient): Female Spiritual care concerns: No Agree to blood products: Yes Anes - Eval Final PreProcedure Day of Procedure 04/03/25 09:51 Heart: regular rate and rhythm Lungs: clear to auscultation Airway: Mallampati scale class II Neurological: alert and oriented Last oral intake: >/= 8 hours ASA classification: II Emergent: no Anesthetic plan: proceed Anesthesia type and monitoring: monitored anesthesia care Results Review: All pre-operative results and documents have been reviewed as part of the pre-operative evaluation. Informed Consent: The patient's anesthetic plan and its attendant risks and benefits were discussed with the patient/family/POA. Questions were solicited and answers provided to the satisfaction of the patient/family/POA.
--- NOTE | 2025-04-03 09:57 | PM.IMHP2 ---
H&P: HPI History of Present Illness Date/Time: 04/03/25 09:57 Chief Complaint: iron deficiency anemia Narrative: the patient had a recent colonoscopy, 2 months ago for the finding of iron deficiency anemia. She is now referred for EGD. she endorses heavy menstrual periods with lots of clots. Most likely cause of her iron deficiency anemia. AA the Review of Systems Review of Systems: All systems reviewed & are unremarkable except as noted in HPI and below PMFSH Past Medical History Medical History Tinea Atypical mole Migraine Insomnia Fatigue Diarrhea Other nonrheumatic mitral valve disorders Hypothyroidism, unspecified Herpes simplex Heartburn Heart palpitations Gastro-esophageal reflux disease without esophagitis Essential (primary) hypertension Anxiety Abnormal mammogram Skin lesion of hand Rash and nonspecific skin eruption Hypertension Vaginal delivery x2 Surgical History Surgical History History of tubal ligation Family History Family History (Updated 02/12/25 @ 10:55 by Romelia Houser MA) Father Patient's father is in good health, Onset Age: 65 Grandparent Family history of malignant neoplasm of male breast Mother Family history of malignant neoplasm of brain, Onset Age: 76 History of GI bleed Social History Social History Smoking status: Never smoker Second hand tobacco smoke exposure: No Alcohol intake: former Substance use: never Substance use type: does not use Lack of Transportation: No Lack of Food: Never True Current Housing: I Have Housing Concerned About Future Housing: No Difficulty Paying Gas/Electric Bills: No Difficulty Paying for Meds: No Currently Unemployed: No Education: High School Diploma/GED Difficulty w/ Childcare or Family Care: No Living arrangements: with family Additional living arrangements comments: Gender identity (if verbalized by the patient): Female Spiritual care concerns: No Agree to blood products: Yes Meds Home Medications and Allergies Home Medications ?Medication ?Instructions ?Recorded ?Confirmed ?Type omeprazole 20 mg capsule,delayed 20 mg PO DAILY 05/31/19 04/03/25 History release omega-3 fatty acids-fish oil 360 1 cap PO DAILY 08/29/22 04/03/25 History mg-1,200 mg capsule (Fish Oil) cholecalciferol (vitamin D3) 50 100 mcg (2 x 50 mcg (2,000 unit)) 09/23/24 04/03/25 Rx mcg (2,000 unit) capsule PO DAILY #180 caps metoprolol succinate 100 mg 100 mg PO DAILY #90 tabs 02/12/25 04/03/25 Rx tablet,extended release 24 hr magnesium 200 mg tablet 400 mg PO HS 02/17/25 04/03/25 History sertraline 25 mg tablet 25 mg PO DAILY 03/10/25 03/10/25 History Allergies Allergy/AdvReac Type Severity Reaction Status Date / Time Penicillins Allergy Unknown Rash Verified 04/03/25 07:41 Vital Signs Vital Signs - 24 hr 04/03/25 07:50 Temperature 98.3 F Pulse Rate 66 Respiratory Rate 16 Blood Pressure 135/79 Pulse Oximetry 100 Oxygen Delivery Room Air Exam Const: General: cooperative and healthy appearing Resp: Effort & Inspection: normal respiratory effort and able to speak in complete sentences Auscultation: clear to auscultation bilaterally Cardio: Rate: regular rate Rhythm: regular rhythm GI: Inspection: normal to inspection GI Palp: No No hepatosplenomegaly present Auscultation: normal bowel sounds Rectal Exam: deferred Skin: General skin exam: normal color Psych: Appearance: grossly normal Mental Status: mental status grossly normal Assessment and Plan Assessment and plan (1) Iron deficiency anemia: Code(s): D50.9 - Iron deficiency anemia, unspecified Status: Acute Assessment and Plan: The patient is deemed a good candidate for the procedure. Consent signed. Will proceed.
[2025-04-03 10:08] VITALS: BP 107/59; PULSE 73; RESP 14; O2SAT 98
--- NOTE | 2025-04-03 10:11 | PM.IMHP2 ---
H&P: HPI History of Present Illness Date/Time: 04/03/25 10:11 Chief Complaint: Iron deficiency anemia Narrative: The patient underwent a colonoscopy last month for iron deficiency anemia. Now she is referred for EGD. Review of Systems Review of Systems: All systems reviewed & are unremarkable except as noted in HPI and below PMFSH Past Medical History Medical History Tinea Atypical mole Migraine Insomnia Fatigue Diarrhea Other nonrheumatic mitral valve disorders Hypothyroidism, unspecified Herpes simplex Heartburn Heart palpitations Gastro-esophageal reflux disease without esophagitis Essential (primary) hypertension Anxiety Abnormal mammogram Skin lesion of hand Rash and nonspecific skin eruption Hypertension Vaginal delivery x2 Surgical History Surgical History History of tubal ligation Family History Family History (Updated 02/12/25 @ 10:55 by Romelia Houser MA) Father Patient's father is in good health, Onset Age: 65 Grandparent Family history of malignant neoplasm of male breast Mother Family history of malignant neoplasm of brain, Onset Age: 76 History of GI bleed Social History Social History Smoking status: Never smoker Second hand tobacco smoke exposure: No Alcohol intake: former Substance use: never Substance use type: does not use Lack of Transportation: No Lack of Food: Never True Current Housing: I Have Housing Concerned About Future Housing: No Difficulty Paying Gas/Electric Bills: No Difficulty Paying for Meds: No Currently Unemployed: No Education: High School Diploma/GED Difficulty w/ Childcare or Family Care: No Living arrangements: with family Additional living arrangements comments: Gender identity (if verbalized by the patient): Female Spiritual care concerns: No Agree to blood products: Yes Meds Home Medications and Allergies Home Medications ?Medication ?Instructions ?Recorded ?Confirmed ?Type omeprazole 20 mg capsule,delayed 20 mg PO DAILY 05/31/19 04/03/25 History release omega-3 fatty acids-fish oil 360 1 cap PO DAILY 08/29/22 04/03/25 History mg-1,200 mg capsule (Fish Oil) cholecalciferol (vitamin D3) 50 100 mcg (2 x 50 mcg (2,000 unit)) 09/23/24 04/03/25 Rx mcg (2,000 unit) capsule PO DAILY #180 caps metoprolol succinate 100 mg 100 mg PO DAILY #90 tabs 02/12/25 04/03/25 Rx tablet,extended release 24 hr magnesium 200 mg tablet 400 mg PO HS 02/17/25 04/03/25 History sertraline 25 mg tablet 25 mg PO DAILY 03/10/25 03/10/25 History Allergies Allergy/AdvReac Type Severity Reaction Status Date / Time Penicillins Allergy Unknown Rash Verified 04/03/25 07:41 Vital Signs Vital Signs - 24 hr 04/03/25 07:50 Temperature 98.3 F Pulse Rate 66 Respiratory Rate 16 Blood Pressure 135/79 Pulse Oximetry 100 Oxygen Delivery Room Air Exam Const: General: cooperative and healthy appearing Resp: Effort & Inspection: normal respiratory effort and able to speak in complete sentences Auscultation: clear to auscultation bilaterally Cardio: Rate: regular rate Rhythm: regular rhythm GI: Inspection: normal to inspection GI Palp: No No hepatosplenomegaly present Auscultation: normal bowel sounds Rectal Exam: deferred Skin: General skin exam: normal color Psych: Appearance: grossly normal Mental Status: mental status grossly normal Assessment and Plan Assessment and plan (1) Iron deficiency anemia: Code(s): D50.9 - Iron deficiency anemia, unspecified Status: Acute Assessment and Plan: Patient here for EGD for completeness of the study for iron deficiency anemia. Most likely source is her heavy menstrual periods. Plan Note: This note corresponds to her visit on 04/03/2025.
--- NOTE | 2025-04-03 10:12 | WPDANESPN ---
Anes - Prog Note Post-Op Date/Time: 04/03/25 10:12 Cardiovascular status: normal Respiratory status: normal Airway patency: baseline Mental status: baseline Post-Op hydration status: normal Vital Signs: Last Vital Signs Temp 36.8 C 04/03/25 07:50 Pulse 66 04/03/25 07:50 Resp 16 04/03/25 07:50 BP 135/79 04/03/25 07:50 Pulse Ox 100 04/03/25 07:50 O2 Del Method Room Air 04/03/25 07:50 Pain Score (VAS): 0 I/O: Intake & Output 04/02/25 04/03/25 04/03/25 23:59 07:59 15:59 Intake Total 0 Balance 0 Patient Feedback: Patient satisfied with anesthetic care.
[2025-04-03 10:18] VITALS: BP 110/54; PULSE 66; RESP 16; O2SAT 97
[2025-04-03 10:28] VITALS: BP 93/67; PULSE 68; RESP 16; O2SAT 100
== END 2025-04-03 10:37 | disposition home or self-care (01) ==
PROVIDERS: PCP Emergency Medicine; Referring Provider Internal Medicine Gastroenterology; Visit Provider Internal Medicine Gastroenterology
PROC: 0DJ08ZZ Inspection of Upper Intestinal Tract, Via Natural or Artificial Opening Endoscopic (ICD-10-PCS; CPT 43239; principal; 2025-04-03 09:30)
DX: D50.9 Iron deficiency anemia, unspecified (principal); K31.7 Polyp of stomach and duodenum
CPT/HCPCS: 43239

== ENCOUNTER 2025-04-03 11:43 | Outpatient (NON) | payer OTHER, SELFPAY ==
--- NOTE | 2025-04-03 | S_PTH ---
PATIENT: Tere Tracy LOC: [facility] U#:[id number] AGE/SX: 49/F ROOM: RE04/03/[address]: Willi Roberts MD : 1975 BED: DIS: 04/03/2025 SPEC #: [id number] RECD: 04/05/25 13:52 STATUS: NENITA REQ #: [id number] DAPHNE: 04/03/25 00:[address]: Willi Roberts DEPT: [facility] Surgical RECD BY: Keyla Owens ENTERED: 04/05/25 13:54 SP TYPE: Surgical OTHR DR: Del Beaulieu MD Tissues: A - Gastric Biopsy B - Gastric Biopsy Procedures: Hematoxylin and Eosin Stain Gross and Microscopic Level 4
== END 2025-04-03 11:44 | disposition home or self-care (01) ==
PROVIDERS: PCP Emergency Medicine; Visit Provider Internal Medicine Gastroenterology
DX: D50.9 Iron deficiency anemia, unspecified (principal)
CPT/HCPCS: 88305